=== PATIENT | male | born 1965 | race Caucasian/White ===

== ENCOUNTER 2017-04-30 13:26 | Outpatient (CLI) | payer OTHER ==
--- NOTE | 2017-04-30 17:29 | RAD ---
CHEST PA AND LATERAL TWO VIEWS: 04/30/17 HISTORY: 51-year-old male with history of cough for ten days. Heart size is normal. The right lung is clear. Patchy interstitial and alveolar opacity changes in th e left lower lobe evidence for pneumonia. IMPRESSION: Left lower lobe pneumonia. Report was called to Aliza Edmond at 2:07 p.m. Code CR POS: [facility]
== END 2017-04-30 13:27 | disposition home or self-care (01) ==
LOC: SCSRAD 13:26
PROVIDERS: ATTEND Nurse Practitioner Family
DX: J18.9 Pneumonia, unspecified organism (principal)
CPT/HCPCS: 71020

== ENCOUNTER 2018-06-01 12:09 | Outpatient (CLI) | payer BC ==
--- NOTE | 2018-06-01 13:28 | RAD ---
ABDOMEN ONE VIEW: HISTORY: Abdominal pain. COMPARISON: None. FINDINGS: Large amount of stool throughout the colon. No differential air-fluid levels or evidence of free int raperitoneal gas. No radiopaque foreign bodies apparent. IMPRESSION: Large amount of stool, suggestive of constipation. No evidence of obstruction. POS: [facility]
== END 2018-06-01 12:10 | disposition home or self-care (01) ==
LOC: SCSRAD 12:09
PROVIDERS: ATTEND Internal Medicine Gastroenterology
DX: Z12.11 Encounter for screening for malignant neoplasm of colon (principal); R19.4 Change in bowel habit; K59.00 Constipation, unspecified; F11.20 Opioid dependence, uncomplicated; R12 Heartburn; Z83.71 Family history of colonic polyps
CPT/HCPCS: 74019

== ENCOUNTER 2018-10-17 07:39 | Outpatient (CLI) | payer BC ==
--- NOTE | 2018-10-17 10:13 | ULT ---
ULTRASOUND ABDOMEN COMPLETE: HISTORY: Abdominal bloating. FINDINGS: The gallbladder has normal wall thickness and has no evidence of gallstones or sludge. The hepatic e chogenicity is normal. The kidneys have normal echogenicity, and there is no hydronephrosis. There is no splenomegaly. There is no abdominal aortic aneurysm. No free fluid is identified. The inferi or vena cava is visualized. The pancreas is visualized, although ultrasound is relatively insensitiv e for pancreatic pathology compared to CT and MRI. There is no biliary dilation. The common duct ca liber is 3 mm. IMPRESSION: Normal. jn [] POS: [facility]
== END 2018-10-17 07:40 | disposition home or self-care (01) ==
LOC: BICULT 07:39
PROVIDERS: ATTEND Internal Medicine Gastroenterology
DX: R14.0 Abdominal distension (gaseous) (principal)
CPT/HCPCS: 76700